=== PATIENT | female | born 1995 | race Caucasian/White ===

== ENCOUNTER 2025-05-29 14:21 | Emergency (ER) | payer BC, SELFPAY ==
[2025-05-29 14:21] VITALS: BMI 22.9
[2025-05-29 14:42] VITALS: BP 90/63; PULSE 112; RESP 23; TEMP 36.5; O2SAT 99
--- NOTE | 2025-05-29 14:49 | PC.NURSE ---
patient brought in by mom for seizure mom states seizure lasted 15 minutes from 1344 t0 1401. patient states has a history of seizures and hasn't taken her meds in 6 months. states last seizure 02/15/24
--- NOTE | 2025-05-29 15:17 | EDNOTE_ITS ---
<Statement entered by Mimi Menezes MD - 05/29/25 18:18> As co-signing physician, I was present and available for consult prn. I concur with the plan and care as documented by the midlevel provider. ED General RME/HPI General Chief complaint: Seizure Stated complaint: Seizure Time Seen by Provider: 05/29/25 15:14 Arrival date/time: 05/29/25 14:21 CC: Seizure HPI patient had a 15-minute long seizure at home. Patient's last seizure was 8 months ago. Patient has been noncompliant with her zonisamide for the past 6 months. Denies fever chills or flulike symptoms prior to the seizure. Had classic premonition which included d?j? vu prior to the seizure. Denies sexual activity. Mother at bedside confirms the patient's history. Patient is currently awake alert nontoxic-appearing not in any acute distress. Related Data Home Medications ?Medication ?Instructions ?Recorded ?Confirmed methylphenidate HCl 10 mg tablet 10 mg PO BID 05/31/21 05/31/21 zonisamide 100 mg capsule 300 mg PO HS 05/31/21 Previous Rx's ?Medication ?Instructions ?Recorded levetiracetam 750 mg tablet 750 mg PO BID #30 tabs 09/16 (Keppra) cephalexin 500 mg capsule 500 mg PO TID #21 caps 05/29 ondansetron 4 mg disintegrating 4 mg PO Q8H #10 tabs 1 07/30/24 tablet zonisamide 100 mg capsule 300 mg (3 x 100 mg) PO BID # 30 caps 05/29/25 Allergies Allergy/AdvReac Type Severity Reaction Status Date / Time lamotrigine AdvReac Severe Hives Verified 05/29/25 14:52 Review of Systems Review of Systems Narrative Review of Systems: GEN: No fever, no chills, no weight loss EYES: No discharge, no visual changes, no pain HEENT: No ear pain, no congestion, no sore throat PULM: No shortness of breath, no cough, no congestion CV: No chest pain, no dyspnea on exertion, no palpitations GI: No nausea, no vomiting, no diarrhea, no pain, no constipation : No frequency, no urgency, no dysuria MUSC/SKEL: No joint pain, no back pain SKIN: No rash PSYCH: No hallucinations, no depression HEME/LYMPH: No easy bleeding or bruising tendencies NEURO: No weakness, no headache Past Medical History Past Medical History NEUROLOGIC: Positive Epilepsy CARDIAC: Negative Congestive Heart Failure RESPIRATORY: Negative Chronic Obstructive Pulmonary Disease (COPD) GENITOURINARY: Negative Renal Disease ENDOCRINE: Negative Diabetes Mellitus Type 1 or Diabetes Mellitus Type 2 Social History SMOKING STATUS: Never smoker Course Course Course Narrative: Urine is questionable I will treat the patient for her UTI. No other acute finding. Quality Measures none Orders Category Date Time Status CBC Stat Lab 05/29/25 15:19 Completed CMP [Comprehensive Metabolic Panel] Stat Lab 05/29/25 15:19 Completed Drug Screen,Urine Stat Lab 05/29/25 15:47 Completed HCG Qualitative,Urine Stat Lab 05/29/25 15:47 Completed Urinalysis Stat Lab 05/29/25 15:47 Completed Acetaminophen Tab [Tylenol Tab] Med 05/29/25 15:51 Discontinued 650 mg PO X1 ONE Ondansetron Odt [Zofran Odt] Med 05/29/25 16:11 Discontinued 4 mg PO X1 ONE Zonisamide [Zonegran] Med 05/29/25 15:15 Discontinued 400 mg PO X1 ONE levETIRAcetam INJ [Keppra Inj] Med 05/29/25 15:16 Discontinued 1,000 mg IVP X1 ONE Vital Signs Vital signs: Vital Signs Temperature 97.7 F 05/29/25 14:42 Pulse Rate 112 H 05/29/25 14:42 Respiratory Rate 23 H 05/29/25 14:42 Blood Pressure 90/63 05/29/25 14:42 Pulse Oximetry (%) 99 05/29/25 14:42 Oxygen Delivery Method Room Air 05/29/25 14:42 Discharge Plan Plan Patient Disposition: HOME (Self Care) Patient condition on transfer: Stable Prescriptions/Referrals Prescriptions/Med Rec: New zonisamide 100 mg capsule 300 mg PO BID Qty: 30 1RF cephalexin 500 mg capsule 500 mg PO TID Qty: 21 0RF ondansetron 4 mg tablet,disintegrating 4 mg PO Q8H Qty: 10 0RF No Action methylphenidate HCl 10 mg tablet 10 mg PO BID zonisamide 100 mg capsule 300 mg PO HS Patient Comments: TAKE THREE TABLETS BY MOUTH AT BEDTIME levetiracetam [Keppra] 750 mg tablet 750 mg PO BID Qty: 30 0RF Referrals: No Primary/Family,Physician [Primary Care Provider] - In 1 week Wilton Reece MD [Physician, Neurology] - In 1 week Problem List Clinical Impression: Seizure, Noncompliance with medication regimen, Headache, Nausea, UTI (urinary tract infection) Patient/Caregiver Discharge Instructions Education Materials: Self-Care for Headaches, ED Seizure, Recurrent (Adult), ED CYSTITIS Female Adult Print Language: Latvian Stand Alone Forms: Jeannie Award Info., Patient Portal Info Letter, Work/School Release PA/[employer] Supervising Physician PA/[employer] Supervising Physician: Hung Boykin ENP MDM Clinical Information Provided by: patient Medical Records reviewed [facility] Meds/Rx considered, not ordered None Labs/Rad/Tests considered, not ordered None Chronic Illness/Social Conditions Explain: Seizure disorder EKG EKG not done Labs Labs: interpreted by me Medication Administration(s) Medication Administration History Discontinued Medications Acetaminophen (Acetaminophen 325 Mg Tablet) 650 mg PO X1 ONE Stop: 05/29/25 15:52 Last Admin: 05/29/25 16:27 Dose: 650 mg Documented By: EF Levetiracetam (Levetiracetam Inj 100 Mg/Ml Vial 5ml) 1,000 mg IVP X1 ONE Stop: 05/29/25 15:17 Last Admin: 05/29/25 15:30 Dose: 1,000 mg Documented By: EF Ondansetron HCl (Ondansetron Odt 4 Mg Tabrap) 4 mg PO X1 ONE; Protocol Stop: 05/29/25 16:12 Last Admin: 05/29/25 16:28 Dose: 4 mg Documented By: EF Zonisamide (Zonisamide 100 Mg Capsule) 400 mg PO X1 ONE Stop: 05/29/25 15:16 Last Admin: 05/29/25 15:44 Dose: 400 mg Documented By: EF
[2025-05-29 15:30] LABS: Basophils # (Auto) 0.1 Thou/mm3 (0.0-0.2); Basophils % (Auto) 1 % (0-2.5); Eosinophils # (Auto) 0.1 Thou/mm3 (0.0-0.5); Eosinophils % (Auto) 1 % (0-10); Hematocrit 38.7 % (36.0-46.0); Hemoglobin 13.0 g/dL (12.0-16.0); Immature Granulocytes Auto 0.03 Thou/mm3 (0.00-0.00); Lymphocytes # (Auto) 1.2 Thou/mm3 (1.0-4.8); Lymphocytes % (Auto) 13 % (10-50); Mean Corpuscular HGB Conc 33.6 g/dl (31.0-37.0); Mean Corpuscular Hemoglobin 28.6 pg (25.0-35.0); Mean Corpuscular Volume 85 fL (80-100); Monocytes # (Auto) 0.5 Thou/mm3 (0.0-0.8); Monocytes % (Auto) 5 % (0-12); Neutrophils # (Auto) 7.3 Thou/mm3 (1.8-7.7); Neutrophils % (Auto) 80 % (37-80); Nucleated Red Blood Cell # 0.00 Thou/mm3 (0.00-0.00); Nucleated Red Blood Cell % 0 /100 WBC (0); Platelet Count 277 Thou/mm3 (140-440); RDW Standard Deviation 42.7 fL (36.4-46.3); Red Blood Count 4.55 Miln/mm3 (4.00-5.20); White Blood Count 9.2 Thou/mm3 (3.6-11.0)
[2025-05-29] MEDS: levETIRAcetam INJ 100 MG/ML VIAL 5ML 1000 MG IVP (15:30)
[2025-05-29] MEDS: ZONISAMIDE 100 MG CAPSULE 400 MG PO (15:44)
[2025-05-29 15:51] LABS: Alanine Aminotransferase 25 U/L (10-49); Albumin, Serum 4.8 gm/dL (3.5-5.0); Albumin/Globulin Ratio 2.0 (1.2-2.2); Alkaline Phosphatase 39 U/L (46-116); Anion Gap 19 (7-16); Aspartate Amino Transferase 26 U/L (0-34); BUN/Creatinine Ratio 8 Ratio (12-20); Bilirubin,Total 0.5 mg/dL (0.3-1.2); Blood Urea Nitrogen 7 mg/dL (9-23); Calcium 9.9 mg/dL (8.3-10.6); Calcium (Corrected) 9.9 mg/dL (8.5-10.1); Chloride 108 mMol/L (98-107); Creatinine (Component) 0.9 mg/dL (0.6-1.3); Estimated Creatinine Clearance 82.2 mL/min (>60); Globulin 2.4 gm/dL (2.3-3.5); Glucose 122 mg/dL (74-106); Osmolality,Calculated 280 (275-295); Potassium 3.5 mMol/L (3.4-5.1); Sodium 141 mMol/L (136-145); Total Protein 7.2 gm/dL (5.7-8.2); eGFR > 60 See Note
[2025-05-29 15:53] LABS: Carbon Dioxide 14.1 mMol/L (20.0-31.0)
[2025-05-29 16:02] LABS: Collection Type, Urine Clean Catch
[2025-05-29 16:24] LABS: HCG Qualitative,Urine Negative
[2025-05-29 16:26] LABS: Bacteria,Urine 3+; Bilirubin,Urine Negative (Negative); Blood,Urine Trace (Negative); Clarity,Urine Turbid (Clear/Hazy); Color,Urine Lt-Yellow (Lt Yel-Yel); Glucose, Urine Negative (Negative); Ketones,Urine 1+ (Negative); Leukocyte Esterase,Urine Positive (Negative); Nitrite,Urine Negative (Negative); PH,Urine 5.5 (5.0-7.0); Protein,Urine 1+ (Neg - Trace); RBC,Urine 6 /hpf (0-3); Specific Gravity,Urine 1.022 (1.001-1.035); Squamous Epithelial Cell,Urine 4 /hpf (0-5); Urobilinogen,Urine Negative mg/dL (0.0-1.0); WBC,Urine 3 /hpf (0-5)
[2025-05-29] MEDS: ACETAMINOPHEN 325 MG TABLET 650 MG PO (16:27)
[2025-05-29] MEDS: ONDANSETRON ODT 4 MG TABRAP PO (16:28)
[2025-05-29 16:43] LABS: Amphetamine/Methamp Scrn,U Negative (Negative); Barbiturate Screen,Urine Negative (Negative); Benzodiazepines Screen,Urine Negative (Negative); Benzoylecgonine Screen, Ur Negative (Negative); Fentanyl Screen,Urine Negative (Negative); Opiate Screen,Urine Negative (Negative); THC Screen,Urine Positive (Negative)
[2025-05-29 17:05] VITALS: BP 109/63; PULSE 90; RESP 13; TEMP 36.8; O2SAT 100
[2025-05-29 18:01] VITALS: BP 104/64; PULSE 84; RESP 16; O2SAT 98
== END 2025-05-29 18:02 | disposition home or self-care (01) ==
PROVIDERS: Registered Nurse General Practice; Emergency Provider Emergency Medicine
DX: G40.909 Epilepsy, unspecified, not intractable, without status epilepticus (principal); N39.0 Urinary tract infection, site not specified; Z91.148 Patient's other noncompliance with medication regimen for other reason; T42.6X6A Underdosing of other antiepileptic and sedative-hypnotic drugs, initial encounter; R51.9 Headache, unspecified; R11.0 Nausea
CPT/HCPCS: 36415; 80053; 80307; 81001; 81025; 85025; 96374; 99283; J1953; Q0162; A9270